=== PATIENT | male | born 1985 | race Caucasian/White ===

== ENCOUNTER 2020-08-17 12:16 | Emergency (ER) | payer OTHER, MEDICAID, SELFPAY ==
[2020-08-17 13:15] VITALS: BP 97/54; PULSE 92; RESP 18; TEMP 36.8; O2SAT 100; BMI 31.1
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
== END 2020-08-17 15:11 | disposition home or self-care (01) ==
PROVIDERS: Emergency Provider Emergency Medicine; PCP Nurse Practitioner Family
DX: S16.1XXA Strain of muscle, fascia and tendon at neck level, initial encounter (principal); M54.2 Cervicalgia; M54.5 Low back pain; V43.52XA Car driver injured in collision with other type car in traffic accident, initial encounter; Y93.9 Activity, unspecified; Y92.410 Unspecified street and highway as the place of occurrence of the external cause; Y99.9 Unspecified external cause status
CPT/HCPCS: 99284

== ENCOUNTER 2020-09-17 20:21 | Emergency (ER) | payer MEDICAID, SELFPAY ==
[2020-09-17 20:49] VITALS: BP 108/47; BP 147/74; PULSE 77; PULSE 88; RESP 18; TEMP 36.7; O2SAT 96; O2SAT 98; BMI 24.4
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
--- NOTE | 2020-09-17 21:01 | PC.NURSE ---
belongings are with security now, pt is ok with this he states he understands and is calm cooperative with staff.
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
--- NOTE | 2020-09-17 21:55 | PC.NURSE ---
pt up walking around in room drinking water. pt calm and cooperative, narcan to be given on discharge.
[2020-09-17 21:59] VITALS: BP 107/56; PULSE 66; RESP 16; O2SAT 96
[2020-09-17 22:00] VITALS: BP 107/56; PULSE 69; RESP 16; O2SAT 97
[2020-09-17 22:16] LABS: Amphetamine Screen Urine Not Detected (Not Detect); Barbiturates, Urine Not Detected (Not Detect); Benzodiazepines Screen Urine POSITIVE (Not Detect); Cannabinoid Screen Urine POSITIVE (Not Detect); Cocaine Screen Urine Not Detected (Not Detect); Opiate Screen Urine POSITIVE (Not Detect); Phencyclidine Screen Urine Not Detected (Not Detect)
[2020-09-17] MEDS: Naloxone HCl Nasal TAKE HOME 4 MG SPRAY NOSTRILALT (22:26)
== END 2020-09-17 22:28 | disposition home or self-care (01) ==
PROVIDERS: Emergency Provider Student in an Organized Health Care Education/Training Program; PCP Nurse Practitioner Family
DX: T40.1X1A Poisoning by heroin, accidental (unintentional), initial encounter (principal); Y92.810 Car as the place of occurrence of the external cause; F17.200 Nicotine dependence, unspecified, uncomplicated
CPT/HCPCS: 80307; 99284; 99285

== ENCOUNTER 2021-03-20 14:46 | Emergency (ER) | payer MEDICAID, SELFPAY ==
--- NOTE | 2021-03-20 15:51 | ED_ITS ---
HPI - Skin/Abscess/Foreign Bdy General Chief complaint: Skin/Abscess/Foreign Body Stated complaint: inf wound Time Seen by Provider: 03/20/21 15:51 Source: patient Mode of arrival: ambulatory Limitations: no limitations History of Present Illness HPI narrative: Patient with swelling that started 1 week ago. Now with redness and swelling. Denies shooting drugs. Denies MRSA. complaint: abscess/boil Onset (ago): week(s) Tetanus up to date: yes Location: RUE Severity: moderate Pain Consistency: constant Relieving factors: none Exacerbating factors: none Associated symptoms: denies other symptoms Related Data Previous Rx's Medication Instructions Recorded ibuprofen 800 mg tablet 800 mg PO Q8H PRN #30 tab 08/17/20 Allergies Allergy/AdvReac Type Severity Reaction Status Date / Time No Known Allergies Allergy Unverified 01/26/20 15:54 Review of Systems Constitutional: Constitutional: Reports no additional constitutional complaints Eyes: Eyes: Reports no additional eye complaints ENT: Denies dizziness Cardiovascular: Cardiovascular: Reports no additional cardiovascular complaints Respiratory: Respiratory: Reports as per HPI Gastrointestinal: Gastrointestinal: Reports no additional gastrointestinal complaints Musculoskeletal: Musculoskeletal: Reports no additional musculoskeletal co mplaints Integumentary/Breasts: Skin/Breast: Denies rash Neurologic: Reports system reviewed and no additional complaints, except as documented, Denies dizziness and Denies Sensory deficit (Neuro) Psychiatric: Psychiatric: Denies anxiety [facility] Social History Social History Alcohol intake: never Substance Use Type: Heroin Advance Directives: No Advance Directives Information Provided: Yes Physical Exam Vital Signs: Vital Signs: Last Vital Signs Temp 98.2 F 03/20/21 16:05 Pulse 76 03/20/21 16:05 BP 145/65 H 03/20/21 16:05 Pulse Ox 95 03/20/21 16:05 Body Mass Index 25.0 Const: General: healthy appearing Nutritional Appearance: average body habitus Orientation/consciousness: oriented to person and patient oriented x3 Limitations: no limitations HENMT: Head: Yes normal to inspection Ears: external ears normal General nose exam: Normal external nose present Mouth: Normal oral and palatal mucosa present and oropharynx normal Throat: Yes posterior oropharynx normal Eyes: General: appearance normal, both eyes and all related structures Neck: Other: supple Neck: Yes normal visual inspection Chest: Chest palpation & inspection: normal inspection of the chest Resp: Auscultation: clear to auscultation bilaterally Cardio: Jugular venous distension: no JVD Rate: regular rate Rhythm: regular rhythm Heart sounds: S1 normal heart sound present and S2 normal heart sound present GI: Inspection: Yes normal to inspection Palpation (GI): Soft to palpation, nontender and No hepatosplenomegaly present Auscultation: normal bowel sounds : General: Yes no CVA tenderness Back/Spine/Pelvis: Back: no CVA tenderness Skin: General skin exam: no rashes or lesions noted Neuro: General: oriented to person and patient oriented x3 Cranial nerves: Yes CN's II-XII intact bilaterally Motor exam (neuro): 5/5 motor strength present throughout Sensory Exam: No Sensory deficit (Neuro) Extrem: Other: right forearm with erythema and swelling Psych: Appearance: grossly normal Course Reevaluation(s) Reevaluation #1: bedside ultrasound shows abscess to the forearm Time: 16:07 Reevaluation #2: good pus removal no surrounding cellulitis will dc home not on antibiotics Time: 16:39 Discharge Plan Discharge Clinical Impression: Abscess of skin or subcutaneous tissue Patient Disposition: Home, Self-Care Instructions: Abscess (ED) Additional Instructions: packing removal for 48 hours Prescriptions: No Action ibuprofen 800 mg tablet 800 mg PO Q8H PRN (Reason: pain) Qty: 30 RF: 0 Referrals: Maciej Nelson, HYDROGRAPHY TEACHER-BC [Primary Care Provider] - 3 days
[2021-03-20 16:05] VITALS: BP 145/65; PULSE 76; TEMP 36.8; O2SAT 95; BMI 25.0
[2021-03-20] MEDS: Lidocaine HCl 2 % MPF 5 ML VIAL SUBCUT (16:28)
== END 2021-03-20 17:01 | disposition home or self-care (01) ==
PROVIDERS: Emergency Provider Emergency Medicine; PCP Nurse Practitioner Family
DX: L02.413 Cutaneous abscess of right upper limb (principal)
CPT/HCPCS: 10060; 99283; 99284